=== PATIENT | female | born 1980 | race Two or more races ===

== ENCOUNTER 2017-11-28 14:51 | Emergency (ER) | payer OTHER ==
[~2017-11-28] VITALS: Ht 167.6 cm; Wt 104.3 kg
[2017-11-28 14:57] VITALS: BP 148/83
[2017-11-28] MEDS ORDERED: KETOROLAC TROMETHAMINE INJ 60 MG/2 ML VIAL IM ONE ×2 (15:29→15:30)
== END 2017-11-28 15:36 | disposition home or self-care (01) ==
LOC: ER 14:56
DX: M54.5 Low back pain (principal); M54.30 Sciatica, unspecified side; Z98.51 Tubal ligation status; X50.1XXA Overexertion from prolonged static or awkward postures, initial encounter; Y93.89 Activity, other specified; Y92.89 Other specified places as the place of occurrence of the external cause; Y99.0 Civilian activity done for income or pay
CPT/HCPCS: 96372; 99283; A4606; J1885; Z7610

== ENCOUNTER 2018-01-23 13:03 | Emergency (ER) | payer OTHER ==
[~2018-01-23] VITALS: Ht 167.6 cm; Wt 106.6 kg
--- NOTE | 2018-01-23 13:14 | NUR ---
PT BROUGHT INTO EMERGENCY ROOM FOR C/C OF LOWER BACK PAIN OVER SEVERAL DAYS PT HAS A HISTORY OF SCIATICA. ALERT WITH ORIENTATION X 4.
[2018-01-23] MEDS ORDERED: KETOROLAC TROMETHAMINE INJ 30 MG/ML VIAL ONE (13:30)
[2018-01-23] MEDS ORDERED: ONDANSETRON 4 MG TAB.RAPDIS SL ONE (13:30)
[2018-01-23] MEDS ORDERED: HYDROCODONE/APAP 10/325MG 1 EA TABLET PO ONE (13:30)
[2018-01-23] MEDS ORDERED: KETOROLAC TROMETHAMINE INJ 60 MG/2 ML VIAL IM ONE (13:30)
[2018-01-23] MEDS ORDERED: HYDROCODONE/APAP 10/325MG 1 EA TABLET ONE (13:31)
[2018-01-23] MEDS ORDERED: ONDANSETRON 4 MG TAB.RAPDIS ONE (13:31)
[2018-01-23 14:08] VITALS: BP 139/82
== END 2018-01-23 13:35 | disposition home or self-care (01) ==
LOC: ER 13:04
DX: G89.29 Other chronic pain (principal); M54.41 Lumbago with sciatica, right side; E66.9 Obesity, unspecified
CPT/HCPCS: 96372; 99283; A4606; J1885; Q0162; Z7610

== ENCOUNTER 2018-02-06 17:12 | Emergency (ER) | payer OTHER ==
[~2018-02-06] VITALS: Ht 167.6 cm; Wt 123.8 kg
[2018-02-06 17:12] VITALS: BP 139/77
--- NOTE | 2018-02-06 19:02 | NUR ---
RECEIVED REPORT FROM GARY ARREOLA FOR JASVIR
[2018-02-06] MEDS ORDERED: HYDROCODONE/APAP 5/325MG 1 EACH TABLET ONE (19:28)
[2018-02-06] MEDS ORDERED: IBUPROFEN 600 MG TABLET PO ONE ×2 (19:28→19:30)
[2018-02-06] MEDS ORDERED: HYDROCODONE/APAP 5/325MG 1 EACH TABLET PO ONE (19:30)
== END 2018-02-06 20:01 | disposition home or self-care (01) ==
LOC: ER 17:13
DX: M54.41 Lumbago with sciatica, right side (principal); G89.4 Chronic pain syndrome; E66.01 Morbid (severe) obesity due to excess calories; Z98.51 Tubal ligation status; Z68.41 Body mass index [BMI] 40.0-44.9, adult
CPT/HCPCS: 99283; A4606; Z7610

== ENCOUNTER 2018-11-01 20:18 | Emergency (ER) | payer OTHER ==
[~2018-11-01] VITALS: Ht 167.6 cm; Wt 127.0 kg
--- NOTE | 2018-11-01 20:38 | NUR ---
PT PRESENTED TO THE ER WITH A C/O LOWER BACK PAIN X 5 DAYS. PT STATED THAT THE PAIN HAS BEEN GETTING PROGRESSIVELY WORSE. PT IS AMBULATORY, BUT WAS TAKEN FROM TRIAGE TO ER 18 VIA WC.
--- NOTE | 2018-11-01 20:43 | NUR ---
DR FARNSWORTH IS IN ER 18 SPEAKING TO THE PT.
[2018-11-01] MEDS ORDERED: KETOROLAC TROMETHAMINE INJ 30 MG/ML VIAL ONE (20:54)
[2018-11-01] MEDS: KETOROLAC TROMETHAMINE INJ 60 MG/2 ML VIAL IM ONE (21:00)
[2018-11-01 21:17] VITALS: BP 147/98
== END 2018-11-01 21:08 | disposition home or self-care (01) ==
LOC: ER 20:19
DX: S33.5XXA Sprain of ligaments of lumbar spine, initial encounter (principal); G89.4 Chronic pain syndrome; M54.41 Lumbago with sciatica, right side; E66.01 Morbid (severe) obesity due to excess calories; Z98.51 Tubal ligation status; X58.XXXA Exposure to other specified factors, initial encounter; Y93.89 Activity, other specified; Y92.89 Other specified places as the place of occurrence of the external cause; Y99.8 Other external cause status
CPT/HCPCS: 96372; 99283; J1885

== ENCOUNTER 2019-01-08 22:48 | Emergency (ER) | payer OTHER ==
[~2019-01-08] VITALS: Ht 167.6 cm; Wt 122.5 kg
[2019-01-08 23:33] VITALS: BP 121/58
[2019-01-09] MEDS ORDERED: HYDROCODONE/APAP 10/325MG 1 EA TABLET PO ONE (00:30)
[2019-01-09] MEDS ORDERED: IBUPROFEN 600 MG TABLET PO ONE ×2 (00:30→00:38)
[2019-01-09] MEDS ORDERED: HYDROCODONE/APAP 10/325MG 1 EA TABLET ONE (00:38)
--- NOTE | 2019-01-09 02:26 | NUR ---
ANTONIETA WRAP APPLIED TO R WRIST AND R KNEE PER ER MD ORDER.
--- NOTE | 2019-01-09 02:30 | NUR ---
Crutches dispensed. Pt instructed on proper use of crutches. Patient able to demonstrate correct use of crutches.
--- NOTE | 2019-01-09 02:37 | NUR ---
Patient discharged to home in stable condition. Written and verbal after care instructions given. Patient verbalizes understanding of instruction.
== END 2019-01-09 02:45 | disposition home or self-care (01) ==
LOC: ER 22:51
DX: S32.050A Wedge compression fracture of fifth lumbar vertebra, initial encounter for closed fracture (principal); S80.01XA Contusion of right knee, initial encounter; S39.82XA Other specified injuries of lower back, initial encounter; S69.81XA Other specified injuries of right wrist, hand and finger(s), initial encounter; M43.07 Spondylolysis, lumbosacral region; E66.01 Morbid (severe) obesity due to excess calories; M54.30 Sciatica, unspecified side; Z98.51 Tubal ligation status; W01.0XXA Fall on same level from slipping, tripping and stumbling without subsequent striking against object, initial encounter; Y93.89 Activity, other specified; Y92.89 Other specified places as the place of occurrence of the external cause; Y99.8 Other external cause status
CPT/HCPCS: 72070-TC; 72110-TC; 73110; 73564-TC

== ENCOUNTER 2019-01-29 14:20 | Emergency (ER) | payer OTHER ==
[~2019-01-29] VITALS: Ht 167.6 cm; Wt 122.5 kg
[2019-01-29 14:31] VITALS: BP 143/72
[2019-01-29] MEDS ORDERED: HYDROCODONE/APAP 10/325MG 1 EA TABLET ONE (14:56)
[2019-01-29] MEDS ORDERED: DEXAMETHASONE SOD PHOSPHATE 10 MG/ML VIAL ONE (14:56)
[2019-01-29] MEDS ORDERED: DEXAMETHASONE SOD PHOSPHATE 10 MG/ML VIAL IM ONE (15:00)
[2019-01-29] MEDS ORDERED: HYDROCODONE/APAP 10/325MG 1 EA TABLET PO ONE (15:00)
== END 2019-01-29 15:04 | disposition home or self-care (01) ==
LOC: ER 14:20
DX: M54.42 Lumbago with sciatica, left side (principal); G89.29 Other chronic pain; E66.01 Morbid (severe) obesity due to excess calories; Z98.51 Tubal ligation status
CPT/HCPCS: 96372; 99283; J1100

== ENCOUNTER 2019-05-13 12:10 | Emergency (ER) | payer OTHER ==
[~2019-05-13] VITALS: Ht 167.6 cm; Wt 127.0 kg
--- NOTE | 2019-05-13 12:34 | NUR ---
PT BIB C/O "TAMPON STUCK X 3 DAYS". PT ENDORSES 8/10 BACK PAIN. AAOX4, VSS, NO ACUTE DISTRESS NOTED. PT CONNECTED TO THE MONITOR AND CONTINOUS POX.
--- NOTE | 2019-05-13 13:10 | NUR ---
ER MD AND MYSELF AT BEDSIDE FOR PELVIC EXAM
--- NOTE | 2019-05-13 13:17 | NUR ---
SPECIMEN OBTAINED AND SENT TO LAB
[2019-05-13 13:19] LABS: APPEARANCE,URINE Slightly Cloudy (CLEAR); BILIRUBIN,URINE Negative (NEGATIVE); BLOOD, URINE Moderate Ery/uL (NEGATIVE); COLOR,URINE Dark (YELLOW); KETONES,URINE Negative (NEGATIVE); LEUKOCYTE ESTERASE ,URINE Negative (NEGATIVE); NITRITE, URINE Negative (NEGATIVE); PH,URINE 5.5 (5.0-8.0); PROTEIN,URINE Negative (NEGATIVE); UGLUCOSE Negative (NEGATIVE); UROBILINOGEN,URINE 0.2 EU/dL (0.2)
[2019-05-13 13:30] LABS: BACTERIA,URINE Rare /HPF (None Seen); SQUAMOUS EPITHELIAL CELL,UR Few /HPF (None Seen); WBC,URINE 0-2 /HPF (0-3)
[2019-05-13 13:48] VITALS: BP 141/87
[2019-05-13] MEDS ORDERED: IBUPROFEN 600 MG TABLET PO ONE ×2 (14:18→14:30)
== END 2019-05-13 14:36 | disposition home or self-care (01) ==
LOC: ER 12:11
DX: T19.2XXA Foreign body in vulva and vagina, initial encounter (principal); M54.5 Low back pain; E66.01 Morbid (severe) obesity due to excess calories; G89.29 Other chronic pain; I10 Essential (primary) hypertension; Z68.42 Body mass index [BMI] 45.0-49.9, adult; Z98.890 Other specified postprocedural states; X58.XXXA Exposure to other specified factors, initial encounter; Y93.89 Activity, other specified; Y92.89 Other specified places as the place of occurrence of the external cause; Y99.8 Other external cause status
CPT/HCPCS: 81000-TC; 84703-TC; 87070-TC; 87210-TC; 87491; 87591

== ENCOUNTER → 2019-09-26 | Emergency (ER) | payer OTHER ==
--- NOTE | 2019-09-26 13:06 | NUR ---
PT ELOPED PRIOR TO TRIAGE
== END | disposition left against medical advice (07) ==
LOC: ER 12:45
DX: Z53.21 Procedure and treatment not carried out due to patient leaving prior to being seen by health care provider (principal)

== ENCOUNTER 2020-09-02 19:38 | Emergency (ER) | payer OTHER ==
[~2020-09-02] VITALS: Ht 167.6 cm; Wt 133.8 kg
[2020-09-02 19:38] VITALS: BP 148/95
[2020-09-02] MEDS ORDERED: ACETAMINOPHEN ES 500 MG TABLET ONE (20:11)
[2020-09-02] MEDS ORDERED: ACETAMINOPHEN 325 MG TABLET PO ONE (20:30)
[2020-09-02] MEDS ORDERED: CEPH500C2 PO (21:23)
[2020-09-02] MEDS ORDERED: IBUP-1955 PO (21:23)
[2020-09-02] MEDS ORDERED: TRAM50TA2 PO (21:23)
== END 2020-09-02 21:37 | disposition home or self-care (01) ==
LOC: ER 19:41
DX: M77.31 Calcaneal spur, right foot (principal); L73.9 Follicular disorder, unspecified; I10 Essential (primary) hypertension; E66.01 Morbid (severe) obesity due to excess calories; Z68.42 Body mass index [BMI] 45.0-49.9, adult; Z98.51 Tubal ligation status; Z79.899 Other long term (current) drug therapy
CPT/HCPCS: 73610-TC

== ENCOUNTER 2022-02-13 09:34 | Emergency (ER) | payer OTHER ==
[~2022-02-13] VITALS: Ht 165.1 cm; Wt 121.1 kg
[~2022-02-13 09:34] MED LIST: CEPH500C2 PO; IBUP-1955 PO; TRAM50TA2 PO
--- NOTE | 2022-02-13 09:43 | NUR ---
TO ER BED 12, FROM HOME C/O NAUSEA/VOMITING X 4 DAYS, HAD GASTRIC SLEEVE SX DONE 2 WEEKS AGO, CANNOT KEEP ANYTHING DOWN, AAOX3, BREATHING EVEN AND NON LABORED, CONNECTED TO MONITOR, AWAITING MD ORDERS
[2022-02-13] MEDS ORDERED: MORPHINE SULFATE INJ 4 MG/ML DISP.SYRIN ONE (10:18)
[2022-02-13] MEDS ORDERED: ONDANSETRON HCL/PF 4 MG/2 ML VIAL ONE (10:18)
[2022-02-13] MEDS: IV NS 0.9% 1,000 ML IV ONE ×2 (10:25→11:30)
[2022-02-13] MEDS: ONDANSETRON HCL/PF 4 MG/2 ML VIAL IVP ONE (10:26)
[2022-02-13] MEDS: MORPHINE SULFATE INJ 2 MG/ML DISP.SYRIN IV ONE (10:28)
[2022-02-13 10:34] LABS: BASOPHILS % (AUTO) 0.3 % (0.0-2.0); EOSINOPHILS % (AUTO) 0.2 % (0.0-6.0); HEMATOCRIT 43 % (33-45); HEMOGLOBIN 13.5 g/dL (11.5-14.8); LYMPHOCYTES # (AUTO) 1.1 K/uL (0.8-4.8); LYMPHOCYTES % (AUTO) 14.9 % (20.0-44.0); MEAN CORPUSCULAR HGB CONC 32 g/dl (31.0-36.0); MEAN CORPUSCULAR VOLUME 82 fL (82-100); MONOCYTES # (AUTO) 0.4 K/uL (0.1-1.30); MONOCYTES % (AUTO) 5.3 % (2.0-12.0); NEUTROPHILS # (AUTO) 5.8 K/uL (1.8-8.9); NEUTROPHILS % (AUTO) 79.3 % (43.0-81.0); PLATELET COUNT (AUTO) 153 K/uL (150-450); RED BLOOD CELL COUNT(AUTO) 5.22 MIL/uL (4.0-5.2); WHITE BLOOD COUNT (AUTO) 7.4 K/uL (4.3-11.0)
--- NOTE | 2022-02-13 11:09 | NUR ---
STILL UNABLE TO PROVIDE URINE AT THIS TIME
[2022-02-13 11:14] LABS: ALBUMIN 4.1 g/dL (3.4-5.0); BILIRUBIN,DIRECT 0.2 mg/dL (0.0-0.2); BILIRUBIN,TOTAL 0.8 mg/dL (0.2-1.0); CALCIUM, SERUM 9.3 mg/dL (8.5-10.1); CREATININE 0.8 mg/dL (0.6-1.3); POTASSIUM 3.6 mmol/L (3.5-5.1); TOTAL PROTEIN, SERUM 8.9 g/dL (6.4-8.2)
--- NOTE | 2022-02-13 11:15 | NUR ---
URINE COLLECTED AND SENT TO LAB
[2022-02-13 11:30] LABS: BILIRUBIN,URINE MODERATE (NEGATIVE); COLOR,URINE YELLOW (YELLOW); LEUKOCYTE ESTERASE ,URINE NEGATIVE (NEGATIVE); NITRITE, URINE NEGATIVE (NEGATIVE); PROTEIN,URINE TRACE mg/dl (NEGATIVE); UGLUCOSE NEGATIVE (NEGATIVE)
--- NOTE | 2022-02-13 12:09 | NUR ---
DR IVEY ([phone]). Addendum: 02/13/[address] IVEY'S OFFICE CURRENTLY CLOSED AND WILL BE BACK AFTER 1300 TODAY.
[2022-02-13 12:53] LABS: BACTERIA,URINE Few /HPF (None Seen); MUCUS,URINE Few /LPF (None Seen); RBC,URINE 0-2 /HPF (0-2); WBC,URINE 0-2 /HPF (0-3)
--- NOTE | 2022-02-13 13:14 | NUR ---
SPOKE W/ NATHAN FROM DR. FARIAS'S OFFICE; WILL CALL BACK TO SPEAK W/ DR. ENCARNACION.
--- NOTE | 2022-02-13 13:59 | NUR ---
DR FARIAS CALLED BACK BUT DR. ENCARNACION NOT AVAILABLE; WILL CALL BACK AGAIN.
[2022-02-13] MEDS ORDERED: ONDA4TAB5 PO (14:18)
[2022-02-13] MEDS ORDERED: HYDR-3972 PO (14:18)
--- NOTE | 2022-02-13 14:29 | NUR ---
IV removed. Catheter intact and site benign. Pressure and 4x4 applied to site. No bleeding noted.Patient discharged to home in stable condition. Written and verbal after care instructions given. Patient verbalizes understanding of instruction.
[2022-02-13 14:30] VITALS: BP 126/88
== END 2022-02-13 14:30 | disposition home or self-care (01) ==
LOC: ER 09:40
DX: R10.9 Unspecified abdominal pain (principal); G89.18 Other acute postprocedural pain; I10 Essential (primary) hypertension; Z98.84 Bariatric surgery status; Z79.899 Other long term (current) drug therapy
CPT/HCPCS: 99284; 74176; 96374; 96361; 96375; 85025; 80048; 83690; 80076; 84703; 81001; 36415; J2270; J2405; J7030

== ENCOUNTER 2022-02-22 01:30 | Emergency (ER) | payer OTHER ==
[~2022-02-22] VITALS: Ht 165.1 cm; Wt 97.5 kg
[~2022-02-22 01:30] MED LIST changes: +HYDR-3972 PO; +ONDA4TAB5 PO
[2022-02-22 01:48] VITALS: BP 147/79
[2022-02-22] MEDS ORDERED: IV NS 0.9% 1,000 ML BAG IV ONE ×2 (02:00→03:00)
[2022-02-22] MEDS ORDERED: ONDANSETRON HCL/PF 4 MG/2 ML VIAL IVP ONE (02:00)
--- NOTE | 2022-02-22 02:00 | NUR ---
BIBSELF C/O VOMITING FOR THE PAST FEW DAYS. PT A/O X 4, RR EVEN AND UNLABORED, NO SOB NOTES. PT TO ER BED 11. PT CONNECTED TO MONITORS.
[2022-02-22] MEDS ORDERED: ONDANSETRON HCL/PF 4 MG/2 ML VIAL ONE (02:04)
--- NOTE | 2022-02-22 02:15 | NUR ---
LAB AT BEDSIDE
[2022-02-22 02:21] LABS: BASOPHILS % (AUTO) 0.2 % (0.0-2.0); EOSINOPHILS % (AUTO) 0.1 % (0.0-6.0); HEMATOCRIT 43 % (33-45); HEMOGLOBIN 13.4 g/dL (11.5-14.8); LYMPHOCYTES # (AUTO) 1.1 K/uL (0.8-4.8); LYMPHOCYTES % (AUTO) 14.7 % (20.0-44.0); MEAN CORPUSCULAR HGB CONC 32 g/dl (31.0-36.0); MEAN CORPUSCULAR VOLUME 84 fL (82-100); MONOCYTES # (AUTO) 0.4 K/uL (0.1-1.30); MONOCYTES % (AUTO) 6.1 % (2.0-12.0); NEUTROPHILS # (AUTO) 5.8 K/uL (1.8-8.9); NEUTROPHILS % (AUTO) 78.9 % (43.0-81.0); PLATELET COUNT (AUTO) 97 K/uL (150-450); RED BLOOD CELL COUNT(AUTO) 5.08 MIL/uL (4.0-5.2); WHITE BLOOD COUNT (AUTO) 7.3 K/uL (4.3-11.0)
[2022-02-22 02:46] LABS: CREATININE 0.8 mg/dL (0.6-1.3); POTASSIUM 3.5 mmol/L (3.5-5.1)
[2022-02-22 03:13] LABS: ALBUMIN 3.7 g/dL (3.4-5.0); BILIRUBIN,DIRECT 0.2 mg/dL (0.0-0.2); BILIRUBIN,TOTAL 0.7 mg/dL (0.2-1.0)
[2022-02-22] MEDS ORDERED: ONDA4TAB11 PO (03:21)
--- NOTE | 2022-02-22 03:57 | NUR ---
URINE SENT TO LAB
[2022-02-22 04:26] LABS: BILIRUBIN,URINE MODERATE (NEGATIVE); COLOR,URINE YELLOW (YELLOW); LEUKOCYTE ESTERASE ,URINE NEGATIVE (NEGATIVE); NITRITE, URINE NEGATIVE (NEGATIVE); PROTEIN,URINE 30 mg/dl (NEGATIVE); UGLUCOSE NEGATIVE (NEGATIVE)
--- NOTE | 2022-02-22 04:48 | NUR ---
Patient discharged to home in stable condition. Written and verbal after care instructions given. Patient verbalizes understanding of instruction.
[2022-02-22 08:02] LABS: BACTERIA,URINE Moderate /HPF (None Seen); RBC,URINE 0-2 /HPF (0-2); SQUAMOUS EPITHELIAL CELL,UR Few /HPF (None Seen)
== END 2022-02-22 04:49 | disposition home or self-care (01) ==
LOC: ER 01:30
DX: R11.2 Nausea with vomiting, unspecified (principal); R10.9 Unspecified abdominal pain; K59.00 Constipation, unspecified; Z79.899 Other long term (current) drug therapy
CPT/HCPCS: 99283; 96374; 96361; 85025; 80048; 87086; 83690; 80076; 81001; 36415; 84702; J2405; J7030

== ENCOUNTER 2022-04-25 16:54 | Emergency (ER) | payer OTHER ==
[~2022-04-25] VITALS: Ht 167.6 cm; Wt 140.6 kg
[~2022-04-25 16:54] MED LIST changes: +ONDA4TAB11 PO
[2022-04-25 17:32] VITALS: BP 162/97
[2022-04-25] MEDS ORDERED: ONDA4TAB5 PO (18:12)
[2022-04-25] MEDS ORDERED: ONDANSETRON 4 MG TAB.RAPDIS SL ONE (18:30)
[2022-04-25] MEDS ORDERED: ACETAMINOPHEN ES 500 MG TABLET PO ONE (18:30)
[2022-04-25] MEDS ORDERED: ACETAMINOPHEN ES 500 MG TABLET ONE (18:33)
[2022-04-25] MEDS ORDERED: ONDANSETRON 4 MG TAB.RAPDIS ONE (18:33)
--- NOTE | 2022-04-25 18:35 | NUR ---
ZOFRAN SL GIVEN INDICATED; TYLENOL PO GIVEN TO PATIENT BUT WILL TAKE AFTER ZOFRAN WORKS.
--- NOTE | 2022-04-25 18:38 | NUR ---
Patient discharged to home in stable condition. Written and verbal after care instructions given. Patient verbalizes understanding of instruction.
== END 2022-04-25 18:39 | disposition home or self-care (01) ==
LOC: ER 18:29
DX: R11.2 Nausea with vomiting, unspecified (principal); Z79.899 Other long term (current) drug therapy
CPT/HCPCS: 99283; Q0162

== ENCOUNTER 2022-07-24 10:29 | Emergency (ER) | payer OTHER ==
[~2022-07-24] VITALS: Ht 165.1 cm; Wt 90.7 kg
--- NOTE | 2022-07-24 10:59 | NUR ---
DR LANDRY AT BEDSIDE
--- NOTE | 2022-07-24 11:44 | NUR ---
COMMUTATOR TESTER AT BEDSIDE
[2022-07-24] MEDS ORDERED: HYDROCODONE/APAP 5/325MG TABLET PO ONE (12:30)
[2022-07-24] MEDS ORDERED: HYDROCODONE/APAP 5/325MG TABLET ONE (12:58)
--- NOTE | 2022-07-24 14:03 | NUR ---
AWAITING FOR BACK BRACE, CALLED [facility] SUPPL[facility].
--- NOTE | 2022-07-24 14:23 | NUR ---
Patient discharged to home in stable condition ambulating with cane. Written and verbal after care instructions given. Patient verbalizes understanding of instruction.
[2022-07-24 14:24] VITALS: BP 148/98
== END 2022-07-24 14:25 | disposition home or self-care (01) ==
LOC: ER 10:43
DX: M25.562 Pain in left knee (principal); M25.561 Pain in right knee; M25.571 Pain in right ankle and joints of right foot; M54.50 Low back pain, unspecified; N18.9 Chronic kidney disease, unspecified; Z79.899 Other long term (current) drug therapy; W01.0XXA Fall on same level from slipping, tripping and stumbling without subsequent striking against object, initial encounter; Y93.89 Activity, other specified; Y92.89 Other specified places as the place of occurrence of the external cause; Y99.8 Other external cause status
CPT/HCPCS: 73564-TC; 73610-TC